=== PATIENT | female | born 1990 | race Asian ===

== ENCOUNTER 2023-01-21 01:53 | Emergency (ER) | payer BC, OTHER ==
[2023-01-21] MEDS ORDERED: Sodium Chloride 0.9% 10 ML Syringe FLUSH PRN (02:05)
[2023-01-21] MEDS ORDERED: Ketorolac 30 MG/ML SDV IVPUSH ONE (02:07)
[2023-01-21] MEDS ORDERED: Ondansetron 4 MG/2 ML SDV IVPUSH ONE ×2 (02:07)
[2023-01-21] MEDS ORDERED: Acetaminophen 500 MG Tab PO ONE (02:10)
[2023-01-21 02:16] LABS: BASOPHILS PERCENT AUTO 0.1 % (0.0-1.0); EOSINOPHILS PERCENT AUTO 0.6 % (1.0-3.0); HEMATOCRIT 33.8 % (37.0-47.0); HEMOGLOBIN 11.6 g/dL (12.0-16.0); MEAN CORPUSCULAR HEMOGLOBIN 29.4 pg (27.0-34.0); MEAN CORPUSCULAR HGB CONC 34.3 g/dL (33.0-35.0); MEAN CORPUSCULAR VOLUME 85.8 fL (80-100); MONOCYTES PERCENT AUTO 9.6 % (2-8); NEUTROPHILS PERCENT AUTO 57.7 % (42.2-75.2); PLATELET COUNT,PLT 300 10^3/uL (150-450); RED BLOOD CELL COUNT 3.94 10^6/uL (4.2-5.4); WHITE BLOOD CELL COUNT,WBC 9.3 10^3/uL (5.0-10.0)
[2023-01-21 02:39] LABS: LACTIC ACID 1.1 mmol/L (0.4-2.0)
[2023-01-21 03:04] LABS: A/G RATIO 1.3; ALANINE AMINOTRANSFERASE,ALT 122 U/L (14-59); ALBUMIN 3.9 g/dL (3.4-5.0); ALKALINE PHOSPHATASE 83 U/L (46-116); AMYLASE 615 U/L (25-115); ANION GAP 14.8 mEq/L (7-13); ASPARTATE AMNIOTRANSFERASE,AST 335 U/L (15-37); BILIRUBIN TOTAL 0.4 mg/dL (0.2-1.0); BLOOD UREA NITROGEN,BUN 11 mg/dL (7-18); BUN/CREATININE RATIO 16.9 (No establ ref range); CALCIUM 8.8 mg/dL (8.5-10.1); CARBON DIOXIDE,CO2 27 mmol/L (21-32); CHLORIDE,CL 105 mmol/L (98-107); CREATININE 0.65 mg/dL (0.55-1.02); EST CRCL DRUG DOSING (CG) 121.95 mL/min; ESTIMATED GFR 121 mL/min (>=60); FOLIC ACID 9.8 ng/mL (8.6-58.9); GLUCOSE RANDOM 96 mg/dL (70-99); PHOSPHORUS 3.8 mg/dL (2.6-4.7); POTASSIUM,K 3.8 mmol/L (3.5-5.1); SODIUM,NA 143 mmol/L (136-145); TSH ULTRASENSITIVE 5.27 uIU/mL (0.36-3.74)
[2023-01-21 03:05] LABS: LIPASE > 250 U/L (16-77)
[2023-01-21] MEDS ORDERED: Iopamidol 612 MG/ML 100 ML Bottle IVPUSH ONE (03:06)
[2023-01-21] MEDS ORDERED: Iopamidol 755 Mg/ML 100 ML Bottle IVPUSH ONE (03:19)
[2023-01-21 03:49] LABS: PROTHROMBIN TIME 9.8 SEC (9.0-12.0)
[2023-01-21] MEDS ORDERED: Take Home: Ondansetron 4 MG Tab.DIS, 5 Tab Pack PO ONE (05:00)
== END 2023-01-21 05:13 | disposition home or self-care (01) ==
LOC: DL.ED 01:53
DX: K85.90 Acute pancreatitis without necrosis or infection, unspecified (principal); Z20.822 Contact with and (suspected) exposure to COVID-19
CPT/HCPCS: 36415; 74177; 80053; 80307; 82150; 82746; 83605; 83690; 83735; 84100; 84443; 84484; 85025; 85610; 86140; 87804; 93005; 93010; 96374; 96375; 99284; 99284-25; J1885; J2405; J3490; Q0162; Q9967; U0002